=== PATIENT | male | born 1980 | race Caucasian/White ===

== ENCOUNTER 2024-03-10 10:16 | Emergency (ER) | payer BC ==
[2024-03-10 10:53] VITALS: TEMP 99.1; BMI 31.6
[2024-03-10] MEDS: SODIUM CHLORIDE 0.9% 500 ML INFUS.BAG IV ONE (12:06)
[2024-03-10 12:12] LABS: BASO % 0.4 % (0-2.0); EOS % 0.3 % (0-4.5); HEMATOCRIT 45.9 % (35.4-49); HEMOGLOBIN 15.5 GM/dL (11.7-16.9); LYMPH % 12.6 % (8-40); MCH 30.2 pg (25.7-33.7); MCHC 33.7 g/dl (32.0-35.9); MEAN CELL VOLUME 89.7 fl (80-96); MEAN PLT VOLUME 8.6 fl (7.5-11.1); MONO % 6.5 % (3.8-10.2); NEUT % 80.2 % (42.8-82.8); PLATELET COUNT 180 10^3/uL (134-434); RBC 5.12 M/mm3 (4.00-5.60); RDW 13.1 % (11.9-15.9); WHITE BLOOD COUNT 8.3 K/mm3 (4.0-10.0)
[2024-03-10 12:25] LABS: POTASSIUM 4.9 mmol/L (3.5-5.1)
[2024-03-10 12:29] VITALS: RESP 16
[2024-03-10 12:29] LABS: CALCIUM 9.5 mg/dL (8.5-10.1)
[2024-03-10 12:30] LABS: ALBUMIN 4.2 g/dl (3.4-5.0); BLOOD UREA NITROGEN 16.2 mg/dL (7-18)
[2024-03-10 12:34] LABS: BILIRUBIN,TOTAL 0.4 mg/dL (0.2-1); TOT PROT 7.6 g/dl (6.4-8.2)
[2024-03-10] MEDS ORDERED: chlordiazePOXIDE HCL 25 MG CAPSULE ONE (12:57)
[2024-03-10] MEDS: chlordiazePOXIDE HCL 25 MG CAPSULE PO ONE (12:58)
[2024-03-10 13:09] VITALS: BP 159/102; PULSE 83
== END 2024-03-10 13:00 | disposition home or self-care (01) ==
LOC: JER 10:16
DX: R42 Dizziness and giddiness (principal); F41.8 Other specified anxiety disorders; R07.9 Chest pain, unspecified; H53.8 Other visual disturbances
CPT/HCPCS: 36415; 80053; 84484; 85025; 93005; 93010; 99284-25